=== PATIENT | female | born 1980 | race Two or more races ===

== ENCOUNTER 2016-08-11 09:26 | Day surgery (SDC) | payer MEDICAID ==
[~2016-08-11 09:26] MED LIST: FENTANYL 100 MCG/2 ML VIAL ONE; LIDOCAINE 2% (PRES FREE) 5 ML VIAL ONE; MIDAZOLAM HCL 1 MG/ML 2ML VIAL ONE; PROPOFOL 20 ML IV ONE; SUCCINYLCHOLINE CHL 20 MG/ML DOSE ONE
[2016-08-11] MEDS ORDERED: CEFAZOLIN SODIUM 1,000 MG VIAL ONE (09:57)
[2016-08-11] MEDS ORDERED: SODIUM CHLORIDE 0.9% FLUSH 10 ML ONE (09:57)
[2016-08-11] MEDS ORDERED: BUPIVACAINE 0.5% W/EPI SDV 30 ML VIAL ONE (09:57)
[2016-08-11] MEDS ORDERED: IV START KIT ONE (09:57)
[2016-08-11] MEDS ORDERED: LACTATED RINGERS 1,000 ML ONE (09:57)
[2016-08-11] MEDS ORDERED: CEFAZOLIN SODIUM 2 GRAM PREMIX 100 ML IV ONE (10:44)
[2016-08-11] MEDS ORDERED: DEXAMETHASONE SOD PHOS 4 MG/1 ML VIAL ONE (11:16)
[2016-08-11] MEDS ORDERED: ONDANSETRON 4 MG/2ML 2 ML VIAL ONE (11:16)
[2016-08-11] MEDS ORDERED: NALOXONE HCL 0.4 MG/ML VIAL IV PRN (11:23)
[2016-08-11] MEDS ORDERED: PROMETHAZINE HCL 25 MG/ML VIAL IM PRN (11:23)
[2016-08-11] MEDS ORDERED: ONDANSETRON 4 MG/2ML 2 ML VIAL IV PRN ×2 (11:23→12:31)
[2016-08-11] MEDS ORDERED: HYDROMORPHONE HCL 1 MG/ML SYRINGE IV PRN (11:23)
[2016-08-11] MEDS ORDERED: ATROPINE SULFATE 0.4 MG/1 ML VIAL IV PRN (11:23)
[2016-08-11] MEDS ORDERED: FENTANYL 100 MCG/2 ML VIAL IV PRN (11:23)
[2016-08-11] MEDS ORDERED: MEPERIDINE 25 MG/ML SYRINGE IV PRN (11:23)
[2016-08-11] MEDS ORDERED: LACTATED RINGERS 1,000 ML IV SCH (11:30)
[2016-08-11] MEDS ORDERED: OXYCODONE HCL 5 MG TABLET PO PRN (12:31)
[2016-08-11] MEDS ORDERED: KETOROLAC TROMETHAMINE 30 MG/ML 1 ML VIAL IV PRN (12:31)
[2016-08-11] MEDS ORDERED: MORPHINE SULFATE 2 MG/ML SYRINGE IV PRN (12:31)
[2016-08-11] MEDS ORDERED: ACETAMINOPHEN 325 MG TABLET PO PRN (12:31)
[2016-08-11] MEDS ORDERED: ACETAMINOPHEN 325 MG TABLET ONE (12:53)
[2016-08-11] MEDS ORDERED: KETOROLAC TROMETHAMINE 30 MG/ML 1 ML VIAL ONE (12:53)
[2016-08-11] MEDS ORDERED: OXYCODONE HCL 5 MG TABLET ONE (12:53)
--- NOTE | 2016-08-11 14:53 | OP ---
OLGA WADE [id number] DATE OF OPERATION: August 11, 2016 PREOPERATIVE DIAGNOSIS: Umbilical hernia. POSTOPERATIVE DIAGNOSIS: Umbilical hernia. PROCEDURE: PRIMARY UMBILICAL HERNIA REPAIR SURGEON: Wilbur Patel M.D. ELECTRIFICATION ADVISER: Ismael Vallejo ANESTHESIA: Yuan Macias.NEvanAEvan, general anesthesia. INDICATIONS: This is a 35-year-old female who has a large umbilical hernia that occurred and worsened during . She presents now for elective repair. DESCRIPTION: With informed consent, she was taken to the operating room where she was laid supine on the operating room table. General anesthesia was administered. The abdomen was prepped and draped in the usual fashion. A curvilinear incision was made below the umbilicus. Electrocautery was used to divide the subcutaneous fat. We dissected around the hernia sac. There was actually a very large sac attached to the bottom of the umbilical skin. This was carefully with Metzenbaum scissors. I then excised the fat at the level of the fascia. The hernia defect was fairly small, about the size of a dime. I decided to close this primarily. This was done with multiple [id number] sutures of #0 Surgilon. We had quite a bit of redundant skin. I did excise some of the umbilical skin. Local anesthetic was administered. The umbilical skin was sutured down to the fascia with some #3-0 Vicryl, and then the skin was closed with a running subcuticular #4-0 Monocryl. We had quite a skin discrepancy with a significant amount of extra skin on the umbilical side. Mastisol and SteriStrips were placed. Sterile dressings including a binder were applied. She tolerated this well and was taken to the recovery room in stable condition. Note was made that needle, instrument and lap counts were reported as correct at time of closure. Cc: Geetha Warner M.D.
== END 2016-08-11 15:01 | disposition home or self-care (01) ==
LOC: SDC 09:26
PROVIDERS: ATTEND Surgery
PROC: 0WUF0JZ Supplement Abdominal Wall with Synthetic Substitute, Open Approach (ICD-10-PCS; principal; 2016-08-11)
DX: K42.9 Umbilical hernia without obstruction or gangrene (principal); D64.9 Anemia, unspecified